=== PATIENT | male | born 1970 | race Caucasian/White ===

== ENCOUNTER → 2017-08-01 | Outpatient (CLI) | payer OTHER, BC ==
[2017-08-01 18:30] LABS: Blood Urea Nitrogen 15 mg/dL (9-20); Non-African American GFR(MDRD) >60 (>60 ml/min/1.73 sqM)
--- NOTE | 2017-08-01 19:27 | CT ---
EXAMINATION TYPE: CT angio chest DATE OF EXAM: 08/01/2017 7:17 PM COMPARISON: NONE HISTORY: Abnormal Echo CT DLP: 1058.4 mGycm Automated exposure control for dose reduction was used. CONTRAST: CTA scan of the thorax is performed with IV Contrast, patient injected with 100 mL of Omnipaque 350, pulmonary embolism protocol. There are 3-D post processed images.. FINDINGS: Heart appears enlarged. There is no pericardial effusion. There is no pleural effusion. The lungs are clear of infiltrate. There is no mediastinal adenopathy. There are no hilar masses. There is aneurys m of ascending aorta that measures 5.2 cm. There is no sign of dissection. I see no filling defects in the pulmonary arteries. The bony structures are intact. IMPRESSION: CARDIOMEGALY. 5.2 CM ANEURYSM OF ASCENDING AORTA. NO EVIDENCE OF PULMONARY EMBOLISM.
== END ==
LOC: RADCTMAIN 17:58
PROVIDERS: ATTEND Internal Medicine Interventional Cardiology
DX: Q23.1 Congenital insufficiency of aortic valve (principal); I51.7 Cardiomegaly; I71.2 Thoracic aortic aneurysm, without rupture
CPT/HCPCS: 82565; 84520; 71275; 36415; Q9967

== ENCOUNTER 2017-08-03 06:02 | Day surgery (SDC) | payer OTHER, BC ==
[2017-07-28 15:55] VITALS: BMI 34.0
[~2017-08-03 06:02] MED LIST: ALPRAZolam 0.25 MG TAB PO PRN; ALPRAZolam 0.5 MG TAB PO PRN; ASPIRIN 325 MG TAB PO STA; ATORVASTATIN 80 MG TAB PO STA; NITROGLYCERIN SL TABS 0.4 MG TAB SUBLINGUAL PRN; SODIUM CHLORIDE 0.9% 1,000 ML in EMPTY BAG 1 BAG IV ONE
[2017-08-03 06:24] VITALS: TEMP 98.5
[2017-08-03 06:39] LABS: Basophils % (A) 1 %; CH 30.8; CHCM 35.3; Eosinophils # (A) 0.2 k/uL (0-0.7); Eosinophils % (A) 4 %; HCT 42.4 % (39.0-53.0); HDW 2.88; HGB 14.5 gm/dL (13.0-17.5); Luc # (Auto) 0.15; Luc % (Auto) 3; Lymphocytes # (A) 1.6 k/uL (1.0-4.8); Lymphocytes % (A) 27 %; MCH 30.1 pg (25.0-35.0); MCHC 34.2 g/dL (31.0-37.0); MCV 87.9 fL (80.0-100.0); Mean Platelet Volume 9.4; Monocytes # (A) 0.4 k/uL (0-1.0); Monocytes % (A) 7 %; Neutrophils # (A) 3.5 k/uL (1.3-7.7); Neutrophils % (A) 59 %; RBC 4.83 m/uL (4.30-5.90); RDW 14.4 % (11.5-15.5); WBC 5.9 k/uL (3.8-10.6); WBC (Perox) 5.44
[2017-08-03 06:44] LABS: Anion Gap 12 mmol/L; Blood Urea Nitrogen 16 mg/dL (9-20); Calcium 9.6 mg/dL (8.4-10.2); Carbon Dioxide 21 mmol/L (22-30); Chloride 107 mmol/L (98-107); Glucose 98 mg/dL (74-99); Non-African American GFR(MDRD) >60 (>60 ml/min/1.73 sqM); Sodium 140 mmol/L (137-145)
[2017-08-03] MEDS ORDERED: fentaNYL (PF) 50 MCG/ML 2 ML AMP ONE (06:51)
[2017-08-03] MEDS ORDERED: MIDAZOLAM 2 MG/2 ML VIAL ONE (06:51)
[2017-08-03] MEDS: BENZOCAINE SPRAY 1 SPRAY CAN MUCOUS MEM ONE ×3 (06:56→07:15)
[2017-08-03] MEDS ORDERED: fentaNYL (PF) 50 MCG/ML 2 ML AMP IVP ONE (07:15)
[2017-08-03] MEDS ORDERED: MIDAZOLAM 2 MG/2 ML VIAL IVP ONE ×2 (07:15→07:16)
[2017-08-03] MEDS ORDERED: SODIUM CHLORIDE 0.9% 1,000 ML IV ONE (07:20)
[2017-08-03] MEDS ORDERED: LIDOCAINE 2% INJ 20 MG/ML (20 ML MDV) ONE (07:25)
[2017-08-03] MEDS ORDERED: VERAPAMIL 2.5 MG/ML 2 ML AMP ONE (07:26)
[2017-08-03] MEDS ORDERED: VERAPAMIL SYRINGE (5 MG/10 ML) INTRAARTER ONE (08:03)
[2017-08-03] MEDS ORDERED: HEPARIN SODIUM 1,000 UN/ML (10ML VL) ONE (08:04)
[2017-08-03] MEDS ORDERED: HEPARIN SODIUM 1,000 UN/ML (10ML VL) IV ONE (08:04)
[2017-08-03] MEDS ORDERED: IOHEXOL 350 MG/ML 125ML BOTTLE INJ ONE (08:28)
--- NOTE | 2017-08-03 08:34 | EST ---
EXERCISE STRESS INDICATION: Evaluation of the aortic valve. PROCEDURE: After explaining the procedure to the patient, it's risks and complications, his blood pressure, heart rate, O2 saturation was monitored. He received 3 mg intravenous Versed, 50 mcg intravenous fentanyl. After achieving moderate conscious sedated state, the probe was introduced into the esophagus without difficulty. Images were obtained. Following that, the probe was removed. There was no immediate complication. FINDINGS: Left atrial size is normal. Left ventricular size appears to be dilated with mild global hypokinesis. The estimated ejection fraction is 45% to 50%. The aortic valve and bicuspid valve with preserved opening. The mitral and tricuspid valve are normal. Descending thoracic aorta appears normal. No pericardial effusion was noted. Contrast bubble study revealed no shunting across the interatrial septum. The ascending aorta is dilated measuring up to 5.1 cm. Color Doppler study was obtained and revealed a severe eccentric aortic regurgitation with mild mitral and tricuspid regurgitation. There was no shunting by color Doppler study. CONCLUSION: 1. Mild global hypokinesis of the left ventricle. 2. Bicuspid aortic valve with preserved opening and severe eccentric aortic regurgitation. 3. Mild mitral and tricuspid regurgitation. 4. No shunting across the interatrial septum. 5. Dilated ascending aorta. MMODL / IJN: [id number] /
[2017-08-03 08:37] LABS: Anion Gap 11 mmol/L; Blood Urea Nitrogen 15 mg/dL (9-20); Calcium 9.1 mg/dL (8.4-10.2); Carbon Dioxide 23 mmol/L (22-30); Chloride 107 mmol/L (98-107); Glucose 95 mg/dL (74-99); Non-African American GFR(MDRD) >60 (>60 ml/min/1.73 sqM); Potassium 4.4 mmol/L (3.5-5.1); Sodium 141 mmol/L (137-145)
[2017-08-03] MEDS ORDERED: RX INFO: IV CONTRAST WAS GIVEN 1 EACH MISC MISCELLANE PRN (08:40)
[2017-08-03] MEDS ORDERED: SODIUM CHLORIDE 0.9% 1,000 ML IV SCH (08:45)
[2017-08-03] MEDS ORDERED: METOPROLOL SUCCINATE (ER) 25 MG TAB.ER.24H PO SCH (09:00)
[2017-08-03 09:04] VITALS: RESP 16
--- NOTE | 2017-08-03 09:49 | CC ---
CARDIAC CATHETERIZATION REPORT Mr. James is a 47-year-old male who recently was found to have evidence of cardiomyopathy as well as bicuspid aortic valve and severe aortic regurgitation. In view of that, recommendation was made regarding cardiac catheterization. The procedure as well as the risks and complications were discussed with the patient who is in full understanding and agreement. PROCEDURE: The patient was brought to nitriles lab technician in a fasting, semi-sedated state after receiving fentanyl and Benadryl and after achieving moderate conscious sedated state. Using Xylocaine anesthesia in the Seldinger technique, 6-Macedonian sheath was introduced in the right radial artery. Selective right and left coronary angiography performed using 5- Macedonian 4 bend left Edgard catheter and a 6-Macedonian 5 bend right Edgard catheter. Images of the coronary artery including hemiaxial views were obtained. Following that, 5-Macedonian tight pigtail catheter introduced in the left ventricle and a 30-degree QUEEN view of the left ventricle was obtained. Following that, an CAMBODIAN view of the ascending aorta was performed. Following that, cath and sheaths were removed. Hemostasis was obtained with deployment of a TR band. There was no immediate complication. Patient was returned to his room in stable condition. Of note, the patient received 5000 units of intravenous heparin as well as intra-arterial verapamil. FINDINGS: LEFT MAIN: This is a short size vessel bifurcating left circumflex and left anterior descending artery. The left main coronary artery is without any significant obstructive coronary artery disease. LEFT ANTERIOR DESCENDING ARTERY: This is a large-sized vessel reaching toward the apex with a wraparound apex segment giving rise to 2 moderately sized diagonal branch. Left anterior descending artery as well as branches have no evidence of obstructive coronary artery disease. LEFT CIRCUMFLEX: This is a nondominant vessel, large in caliber, giving rise to a large obtuse marginal branch. The left circumflex as well as branches have no evidence of obstructive coronary artery disease. RIGHT CORONARY ARTERY: This is a large dominant vessel bifurcating distally PDA, posterolateral segment and branches. The right coronary artery as well as branches have no evidence of obstructive coronary artery disease. LEFT VENTRICULOGRAM: Left ventriculogram is performed in 30-degree QUEEN view and revealed a dilated left ventricle with mild global hypokinesis with ejection fraction of 45%. There was arrhythmia induced mitral regurgitation. AORTOGRAM: Aortogram was performed in the CAMBODIAN view and revealed a dilated ascending aorta with evidence of 3 to 4+ AI. CONCLUSION: 1. Normal coronary arteries. 2. Dilated left ventricle with mild to moderate global hypokinesis. 3. Dilated ascending aorta with 3 to 4+ aortic regurgitation. RECOMMENDATION: In view of finding, I have recommended proceeding with evaluation for aortic valve replacement and aortic root repair. Those findings and recommendations were discussed with the patient and his family and they are in full understanding and agreement. Duration of the procedure is 33 minutes. MMVAISHNAVIL / IJN: [id number] /
--- NOTE | 2017-08-03 09:55 | LTR ---
August 03, [address] Gamez: I had the opportunity to perform cardiac catheterization on Mr. James at [facility] on the 03 of August and a full copy of the procedure note will be forwarded to you. In brief, he was found to have no evidence of obstructive coronary artery disease with dilated left ventricle with mild to moderately impaired left ventricular systolic function as well as dilatation of the ascending aorta and evidence of 3 to 4+ aortic regurgitation. At this time, I would recommend to proceed with evaluation for aortic valve replacement and ascending aortic repair. I will keep you updated on his progress and thank you again for allowing me the opportunity to participate in his care. Please feel free to call for any questions. Sincerely, Grace LOCKE / DONAN: [phone] /
[2017-08-03 12:58] VITALS: BP 112/62; PULSE 64
== END 2017-08-03 13:10 | disposition home or self-care (01) ==
LOC: CATHCVL 06:02
PROVIDERS: ATTEND Internal Medicine Interventional Cardiology
DX: Q23.1 Congenital insufficiency of aortic valve (principal); I77.810 Thoracic aortic ectasia; Z82.49 Family history of ischemic heart disease and other diseases of the circulatory system; Z79.899 Other long term (current) drug therapy
CPT/HCPCS: 93312; 93320; 93325; 93458; 93567; 99152; 80048; 85025; C1894 ×4; C1887; C1751; C1769 ×2; J2250; J3010; J1644; Q9967

== ENCOUNTER → 2018-05-15 | Outpatient (CLI) | payer OTHER, BC ==
--- NOTE | 2018-05-15 19:37 | CONS ---
CONSULTATION A 48-year-old male patient who is post aortic valve replacement in November 2017 for a bicuspid aortic valve. He has a strong family history for sleep apnea, including his father and a sister. He is coming in for evaluation of sleep apnea. He has snoring. He had no witnessed apneas. Denies having any choking or gasping sensation in the middle of the night. No nocturia. He goes to bed between 10:30 and 11:00 p.m., wakes up at 4:30 am in the morning. He averages around 5-6 hours of sleep. He does not fall asleep while driving. He does not take any naps during the day. Gays score is at 5. PAST MEDICAL HISTORY: Bicuspid aortic valve, post replacement. PAST SURGICAL HISTORY: Includes aortic valve replacement with a bioprosthetic tissue valve, ankle surgery with removal of a chipped bone in 1980, knee arthroscopy in 2007, appendectomy in 2016. MEDICATION: Includes: 1. Coreg and. 2. Aspirin. SOCIAL HISTORY: Nonsmoker. No history of alcoholism. No history of IV drugs. FAMILY HISTORY: Positive for sleep apnea. REVIEW OF SYSTEMS: A 12-point review of systems was done. Positive findings are mentioned above in history of present illness. He does not wake up tired. He does not have any problems the paying attention, does not fall asleep during the day. He is not worried about his sleep quality in general. He has no problems with memory or concentration. No irritability. No depression no anxiety. No claustrophobia. No sexual dysfunction. No restlessness in lower extremities. No sweating. No grinding of the teeth. No dry mouth. No panic attacks. No palpitations. No heartburn. His BP is 132/65, pulse 80, respirations 16, temperature 98.3, saturation 98% on room air. Weight is 220. Height is 5 feet 8 inches. Neck size 17-1/2 inches and BMI is 32.9. GENERAL APPEARANCE: Calm, comfortable. HEAD: Atraumatic, normocephalic. Neck is short, supple. Mallampati class IV. No goiter or neck masses. LUNGS: Clear to auscultation. HEART: Sounds are regular rate and rhythm. Normal S1, S2. Sternum is stable, clean and intact. ABDOMEN: Soft, nontender. No organomegaly. EXTREMITIES: No edema, cyanosis or clubbing. Neurologically, the patient is awake and alert x3 and there is no focal neurological deficit. Psychiatrically, negative for anxiety or depression. IMPRESSION: 1. Obstructive sleep apnea clinically suspected. My overall suspicion is low. The patient snores and he has a positive family history, yet he does not have any significant sleep fragmentation or any excessive daytime hypersomnia or sleepiness. Gays score is at 5. 2. Bicuspid aortic valve, status post replacement with a bioprosthetic tissue valve. PLAN: 1. Will proceed with a PSG to assess the presence of sleep apnea. 2. Encourage weight loss. 3. Extend sleep hours to an average of 7 hours of sleep per night. 4. Will continue to follow. MMVAISHNAVIL / IJN: [id number] /
== END | disposition home or self-care (01) ==
LOC: SLEEP 16:10
PROVIDERS: ATTEND Internal Medicine Critical Care Medicine
DX: R06.83 Snoring (principal); Q23.1 Congenital insufficiency of aortic valve; Z95.3 Presence of xenogenic heart valve; Z79.82 Long term (current) use of aspirin; Z79.899 Other long term (current) drug therapy
CPT/HCPCS: 99211

== ENCOUNTER → 2018-10-16 | Outpatient (CLI) | payer OTHER, BC ==
--- NOTE | 2018-10-16 09:57 | US ---
EXAMINATION TYPE: US kidneys/renal and bladder DATE OF EXAM: 10/16/2018 COMPARISON: NONE CLINICAL HISTORY: R94.4 ABN KIDNEY FUNCTIONS. no complaints from patient. Abnormal bloodwork. EXAM MEASUREMENTS: Right Kidney: 12.4 x 6.8 x 5.5 cm Left Kidney: 12.1 x 6.4 x 6.2 cm Post Void Residual Volume: 12 ml mL Right Kidney: No hydronephrosis or masses seen Left Kidney: cyst lower pole = 2.3 x 2.0 x 1.9 cm, non-shadowing, echogenic area mid pole = 1.1 cm Bladder: wnl Bilateral Jets seen: Yes Normal Post Void Residual: Yes There is no evidence for hydronephrosis at this point in time. No nephrolithiasis is seen. No wagner s are identified. The urinary bladder is poorly distended. Bilateral ureteral jets are seen. Adjacent liver is heterogeneously hyperechoic suggesting body infiltration. Correlate clinically and with liver lab values. Technologist chisholm 2.3 x 1.9 cm round well-defined hypoechoic to anechoic lesi on exophytically lower pole left kidney. No definitive increased through transmission noted. IMPRESSION: No hydronephrosis is evident bilaterally. There is nonspecific 2.3 cm exophytic lesion lower pole lef t kidney does not meet definitive ultrasound characteristics of simple cyst. Follow-up multiphasic co ntrast-enhanced renal protocol CT or MRI is advised to further evaluate and characterize.
== END | disposition home or self-care (01) ==
LOC: RADUSWWP 06:56
PROVIDERS: ATTEND Internal Medicine
DX: N28.9 Disorder of kidney and ureter, unspecified (principal)
CPT/HCPCS: 76770

== ENCOUNTER → 2018-10-16 | Outpatient (CLI) | payer OTHER, BC ==
--- NOTE | 2018-10-16 16:19 | PN ---
PROGRESS NOTE 48-year-old male patient, post aortic valve replacement surgery for bicuspid aortic valve. The patient has severe REJI with an AHI of 82. The patient was offered CPAP therapy at a pressure of 10 cm of water. Today he is coming in for a compliancy check. He is benefitting from the treatment. He is very compliant. His sleep quality is improved. He is waking up refreshed and alert during the day. He has no complaints or issues from his CPAP unit. He is liking the overall treatment and he is benefitting from it. His weight is up by around 9 pounds. He used to weigh around 220, currently he is up to 229. His CPAP is at the pressure of 10. He has been using the CPAP every night and his CPAP use for more than 4 hours is 16 out of 30 over the past 30 days averaging around 4.3 hours per night. AHI while on treatment is down to 3.2. Leak is 22 L/minute. He is using the AirFit N20 nose mask. I offered him also the [employer] nose mask which he likes and he is trying and is willing to use. REVIEW OF SYSTEMS: No chest pain. No palpitations. No shortness of breath. No leg swelling. No orthopnea. No hypersomnia or sleepiness during the day. He does not fall asleep during day-to-day activities. No nocturnal heartburn. No body aches or pains. No palpitations. No altered mentation. PHYSICAL EXAMINATION: BP is 112/80, pulse 80, respirations 16, temperature 98.4, weight is 229.6, Itmann score is 6, saturation 96% on room air. GENERAL APPEARANCE: Calm comfortable. Head is atraumatic, normocephalic. Neck is short, supple. Mallampati class IV. There is no goiter or neck masses. Lungs: Diminished, otherwise clear. HEART: Sounds are regular. Positive S1, S2. No S3, S4. No murmurs. ABDOMEN: Soft, nontender. No organomegaly. EXTREMITIES: No edema. No cyanosis or clubbing. NEUROLOGIC: Alert and oriented x3. There is no focal neurological deficits. Psychiatrically negative for anxiety or depression. IMPRESSION: 1. Severe obstructive sleep apnea, AHI of 82, currently undergoing successful CPAP treatment at the pressure of 10 cm of water. 2. Severe nocturnal oxygen desaturation recovered with CPAP therapy. 3. Obesity, with a body weight of 229. 4. History of bicuspid aortic valve post replacement. PLAN: 1. The patient continues to benefit. 2. Continue CPAP therapy at a pressure of 10. 3. DreamWear nose mask will be introduced instead of the AirFit and 20. 4. Encourage weight loss. 5. Implement good sleep hygiene measures. 6. See me back as needed. MMODL / IJN: [id number] /
== END | disposition home or self-care (01) ==
LOC: SLEEP 14:03
PROVIDERS: ATTEND Internal Medicine Critical Care Medicine
DX: G47.33 Obstructive sleep apnea (adult) (pediatric) (principal); E66.9 Obesity, unspecified; Z99.89 Dependence on other enabling machines and devices

== ENCOUNTER → 2018-11-23 | Outpatient (CLI) | payer OTHER, BC ==
--- NOTE | 2018-11-23 12:57 | CT ---
EXAMINATION TYPE: CT urogram wo/w con DATE OF EXAM: 11/23/2018 COMPARISON: Ultrasound kidneys 10/16/2018 HISTORY: Abnormal US and renal function bloodwork. CT DLP: 2531.2 mGycm CONTRAST: Performed and without and with IV Contrast, patient injected with 100 mL of Isovue 300. CT Urography was performed with unenhanced followed by enhanced images of the kidneys, ureters and ur inary bladder. Delayed images were obtained. 3d reconstruction was perfromed at a separate work sta tion. FINDINGS: KIDNEYS/BLADDER: 2 cm exophytic lesion lower pole left kidney with Hounsfield unit ranging between 25 and 30. I cannot classify this lesion as a simple cyst. MRI is advised. Additional exophytic lesion mid pole right kidney measures 1.1 cm with Hounsfield unit measurement of approximately 25. This coul d also be reviewed at MRI. There is evidence of left-sided nonobstructing nephrolithiasis measuring u p to 3 mm. No hydronephrosis appreciated. Urinary bladder is unremarkable. LUNG BASES-: No visible nodule. No infiltrate. LIVER/GB: No calcified gallstones. No space occupying hepatic lesion. Biliary tree is of normal ca liber. PANCREAS: No inflammation. No distinct mass. SPLEEN: No splenic enlargement. No lesion seen. ADRENALS: No nodule. No thickening. BOWEL: Appendectomy clips are in place. Normal bowel caliber. No inflammation. GENITAL ORGANS: No gross abnormality. LYMPH NODES: No greater than 1cm abdominal or pelvic lymph nodes are appreciated. AORTA: No significant abnormality. OSSEOUS STRUCTURES: No significant abnormality is seen. OTHER: No significant additional abnormality is seen. IMPRESSION: 1. Exophytic left renal lesion which I cannot confidently classified as a simple cyst. While this cou ld reflect a cyst with proteinaceous or hemorrhagic content further evaluation with MRI is advised. S ee above.
== END | disposition home or self-care (01) ==
LOC: RADCTMAIN 10:45
PROVIDERS: ATTEND Internal Medicine
DX: N28.89 Other specified disorders of kidney and ureter (principal); R93.41 Abnormal radiologic findings on diagnostic imaging of renal pelvis, ureter, or bladder
CPT/HCPCS: 74178; 74400; Q9967

== ENCOUNTER → 2019-05-07 | Outpatient (CLI) | payer OTHER, BC ==
[2019-05-07 23:58] LABS: African American GFR (CKD) 73.7 (60.0-200.0); Anion Gap 8.2 mmol/L (4.00-12.00); Carbon Dioxide 24.8 mmol/L (21.6-31.8); Potassium 4.1 mmol/L (3.5-5.5)
== END | disposition home or self-care (01) ==
LOC: LABWHC1 17:06
PROVIDERS: ATTEND Internal Medicine Interventional Cardiology
DX: I42.8 Other cardiomyopathies (principal)
CPT/HCPCS: 36415; 80051; 82565; 84520

== ENCOUNTER → 2019-06-06 | Outpatient (CLI) | payer OTHER, BC ==
[2019-06-06 19:00] LABS: African American GFR (CKD) 89.6 (60.0-200.0); Anion Gap 10.9 mmol/L (4.00-12.00); BUN/Creat Ratio 15.45 Ratio (12.00-20.00); Calcium 9.4 mg/dL (8.7-10.3); Carbon Dioxide 24.1 mmol/L (21.6-31.8); Non-African American GFR(CKD) 77.3 (60.0-200.0); Potassium 4.1 mmol/L (3.5-5.5)
== END | disposition home or self-care (01) ==
LOC: LABWHC1 12:40
PROVIDERS: ATTEND Nurse Practitioner Adult Health
DX: I42.8 Other cardiomyopathies (principal)
CPT/HCPCS: 36415; 80048

== ENCOUNTER → 2020-05-22 | Outpatient (CLI) | payer OTHER, BC ==
--- NOTE | 2020-05-22 07:49 | US ---
EXAMINATION TYPE: US kidneys/renal and bladder DATE OF EXAM: 05/22/2020 COMPARISON: NONE CLINICAL HISTORY: N28.1 RENAL CYST. Follow up left renal cyst EXAM MEASUREMENTS: Right Kidney: 12.8 x 5.3 x 4.8 cm Left Kidney: 12.3 x 6.0 x 5.1 cm Right Kidney: Simple cystic area lateral = 1.2 x 1.2 x 1.3cm Left Kidney: Simple exophytic cystic area = 2.6 x 2.1 x 2.1cm . Previous measurement 2.3 x 2.0 x 1.9 Bladder: appears wnl Bilateral Jets seen: yes There is no evidence for hydronephrosis at this point in time. No nephrolithiasis is seen. No wagner s are identified. The urinary bladder is anechoic. Bilateral ureteral jets are seen. IMPRESSION: Bilateral simple appearing renal cysts.
== END | disposition home or self-care (01) ==
LOC: RADUSWWP 07:13
PROVIDERS: ATTEND Urology
DX: N28.1 Cyst of kidney, acquired (principal)
CPT/HCPCS: 76770

== ENCOUNTER → 2020-09-08 | Outpatient (CLI) | payer OTHER, BC ==
[2020-09-09 02:54] LABS: Albumin 4.4 g/dL (3.80-4.90); Albumin/Globulin Ratio 1.69 (1.60-3.17); Anion Gap 7.1 mmol/L (4.00-12.00); BUN/Creat Ratio 12.73 Ratio (12.00-20.00); Calcium 9.7 mg/dL (8.7-10.3); Carbon Dioxide 27.9 mmol/L (21.6-31.8); Globulin 2.6 g/dL (1.6-3.3); Non-African American GFR(CKD) 76.8 (60.0-200.0); Potassium 4.1 mmol/L (3.5-5.5); Total Bilirubin 0.5 mg/dL (0.2-1.2)
== END | disposition home or self-care (01) ==
LOC: LABWHC1 16:29
PROVIDERS: ATTEND Internal Medicine Interventional Cardiology
DX: I10 Essential (primary) hypertension (principal)
CPT/HCPCS: 36415; 80053

== ENCOUNTER 2021-08-27 07:12 | Day surgery (SDC) | payer BC ==
[2021-08-26 08:37] VITALS: BMI 31.7
[2021-08-27 07:31] VITALS: TEMP 98.3
[2021-08-27] MEDS: LACTATED RINGERS 1,000 ML IV SCH ×2 (07:31→07:58)
[2021-08-27] MEDS ORDERED: LIDOCAINE 1% (10MG/ML) FOR IV START INTRADERMA ONE (07:32)
[2021-08-27] MEDS ORDERED: PROPOFOL 10 MG/ML 20 ML VIAL IV ONE (07:59)
--- NOTE | 2021-08-27 08:17 | P.PCN ---
Date of Procedure: 08/27/21 Preoperative Diagnosis: Screening Postoperative Diagnosis: Sigmoid colon polyp Procedure(s) Performed: Colonoscopy with hot snare polypectomy Anesthesia: MAC Surgeon: Tank Argueta Pathology: other (Sigmoid colon polyp) Condition: stable Disposition: same day Indications for Procedure: 51-year-old male presents today for screening colonoscopy. He has never had a colonoscopy. Benefits and alternatives were provided to the patient. He did provide consent Operative Findings: Sigmoid colon polyp Description of Procedure: The patient was brought to the endoscopy suite and placed in left lateral cutis position and adequate sedation was achieved using conscious sedation. A digital rectal exam was performed and internal hemorrhoids were palpated. An endoscope was then placed in the rectum and advanced to the cecum as identified by landmarks including the appendiceal orifice and the ileocecal valve. The prep was good. The colonoscope was then slowly withdrawn, examining for any mucosal abnormalities. The cecum, ascending, transverse, descending and sigmoid colon were visualized adequately. There were no large neoplastic lesions of the colon. A pedunculated polyp was noted in the sigmoid colon. This was removed with hot snare polypectomy. Hemostasis was maintained. There was no evidence of diverticulosis. Retroflexion was performed in the rectum and internal hemorrhoids were visible. Excess air was removed, the colonoscope withdrawn and the procedure terminated. The patient was then transferred to the recovery unit in stable condition. Repeat colonoscopy should be performed in 5 years.
[2021-08-27 08:39] VITALS: BP 119/67; PULSE 58; RESP 18
== END 2021-08-27 08:51 | disposition home or self-care (01) ==
LOC: ORWHC2ENDO 07:12
PROVIDERS: ATTEND Surgery
DX: Z12.11 Encounter for screening for malignant neoplasm of colon (principal); D12.5 Benign neoplasm of sigmoid colon; Z79.899 Other long term (current) drug therapy; E78.5 Hyperlipidemia, unspecified; G47.33 Obstructive sleep apnea (adult) (pediatric); Z79.82 Long term (current) use of aspirin
CPT/HCPCS: 88305; 45385; J2704

== ENCOUNTER → 2021-10-14 | Outpatient (CLI) | payer BC ==
[2021-10-14 10:05] LABS: ALT 37 U/L (4-49); African American GFR (CKD) >90 (>60 ml/min/1.73 sqM); Albumin 4.5 g/dL (3.5-5.0); Anion Gap 7 mmol/L; Blood Urea Nitrogen 14 mg/dL (9-20); Calcium 9.6 mg/dL (8.4-10.2); Carbon Dioxide 27 mmol/L (22-30); Chloride 103 mmol/L (98-107); Glucose 95 mg/dL (74-99); Non-African American GFR(CKD) 82 (>60 ml/min/1.73 sqM); Sodium 137 mmol/L (137-145)
[2021-10-14 10:07] LABS: AST 35 U/L (17-59); Alkaline Phosphatase 66 U/L (38-126); Potassium 5.2 mmol/L (3.5-5.1)
--- NOTE | 2021-10-14 14:34 | CT ---
EXAMINATION TYPE: CT angio chest DATE OF EXAM: 10/14/2021 COMPARISON: CT angiogram of the chest 08/01/2017 HISTORY: follow up thoracic aortic aneurysm CT DLP: 1202 mGycm Automated exposure control for dose reduction was used. CONTRAST: CTA scan of the thorax is performed with IV Contrast, patient injected with 100 mL of Isovue 370, pul monary embolism protocol. MIP images are created and reviewed. 3D reconstructed images are created on an independent workstation and reviewed. FINDINGS: There is some motion artifact on the exam, ascending aorta measures approximately 5 cm whic h has decreased in size slightly in interval, there is suspected interval aortic valve replacement. P atient is post median sternotomy. LUNGS: The lungs are grossly clear, there is no concerning parenchymal mass or nodule identified. T here is no pleural effusion or pneumothorax seen. The tracheobronchial tree is patent. AORTA: Root of the aorta is measuring approximate 5.1 cm, proximal ascending aorta approximately 4.8 cm however there is some motion present. Proximal descending aorta is approximately 2.9 cm, the aort a at the level of the hiatus measures approximately 2.5 to 2.6 cm. MEDIASTINUM: There is satisfactory enhancement of the pulmonary artery and its branches, there is no CT evidence for pulmonary embolism. There are no greater than 1 cm hilar or mediastinal lymph nodes. No pericardial effusion is seen. OTHER: No additional significant abnormality is seen. IMPRESSION: AORTIC ANEURYSM SLIGHTLY DECREASED IN SIZE COMPARED TO PRIOR EXAM
[2021-10-14 15:58] LABS: Chol/HDL Ratio 4.42 Ratio; LDL Cholesterol,Calculated 168.8 mg/dL (0.0-131.0)
== END | disposition home or self-care (01) ==
LOC: RADCTMAIN 08:55
PROVIDERS: ATTEND Internal Medicine Interventional Cardiology
DX: I71.2 Thoracic aortic aneurysm, without rupture (principal); I42.8 Other cardiomyopathies; E78.2 Mixed hyperlipidemia
CPT/HCPCS: 80061; 80053; 71275; 36415; Q9967

== ENCOUNTER → 2022-05-02 | Outpatient (CLI) | payer BC ==
--- NOTE | 2022-05-02 23:19 | CT ---
EXAMINATION TYPE: CT angio chest DATE OF EXAM: 05/02/2022 COMPARISON: CT dated 10/14/2021 HISTORY: Thoracic aortic aneurysm CT DLP: 999.4 mGy.cm. Automated Exposure Control for Dose Reduction was Utilized. TECHNIQUE AND CONTRAST: CTA scan of the thorax is performed with IV Contrast, patient injected with 100ml mL of Isovue 370, a neurysm protocol. MIP and 3-D Images are created on an independent workstation and reviewed. FINDINGS: Suspected previous aortic valve surgery. The aortic root measures up to 5.1 cm, stable. The most infe rior aspect of the ascending thoracic aorta measures up to 5 cm, stable. Unremarkable remainder of the thoracic and upper abdominal aorta. No major or central pulmonary embol ism. Slightly increased cardiac size. No pathologically enlarged lymph nodes in the chest. Grossly unremarkable lungs. Patent trachea and main bronchi. No pleural or pericardial effusion. The gallbladder is not distended. Suspected right renal cyst, not completely included in the scan. Sterno onur wire sutures. IMPRESSION: Stable postoperative changes and ascending aortic aneurysm measuring up to 5 cm as described above.
== END | disposition home or self-care (01) ==
LOC: RADCTMAIN 14:19
PROVIDERS: ATTEND Internal Medicine Interventional Cardiology
DX: I71.2 Thoracic aortic aneurysm, without rupture (principal)
CPT/HCPCS: 71275; Q9967

== ENCOUNTER → 2023-11-15 | Outpatient (CLI) | payer BC | END | disposition home or self-care (01) | LOC: RADCTMAIN 10:55 | PROVIDERS: ATTEND Internal Medicine Interventional Cardiology | DX: Z53.9 Procedure and treatment not carried out, unspecified reason (principal) | CPT/HCPCS: 71275; Q9967 ==

== ENCOUNTER → 2024-11-11 | Outpatient (CLI) | payer BC ==
--- NOTE | 2024-11-11 16:20 | CT ---
EXAMINATION TYPE: CT angio chest CT DLP: 1134.8 mGycm, Automated exposure control for dose reduction was used. DATE OF EXAM: 11/11/2024 4:10 PM COMPARISON: Multiple CTA Chest with most recent 11/15/2023 CLINICAL INDICATION:Male, 54 years old with history of I71.20 ANEURYSM; f/u aneurysm TECHNIQUE/CONTRAST: CTA scan of the thorax is performed without and with IV Contrast, patient injected with 100 mL of Iso abi 370. 3D reconstructed images are created on an independent workstation and reviewed.. FINDINGS: Lungs/Pleura: No evidence of focal consolidation, pleural effusion or pneumothorax. No suspicious pul monary nodule or mass. Airway: Large airways are patent. Heart: The heart is mildly enlarged for size. No pericardial effusion. Mild coronary arterial calcifi cations. Vasculature: Conventional three-vessel aortic arch. No evidence for intramural hematoma or dissection . Prosthetic aortic valve. Marginal increase in size of ascending aortic fusiform aneurysm beginning at the aortic valve measuring up to 4.8 cm, previously 4.6 cm. The distal ascending thoracic aorta me asures up to 2.8. No filling defect within the pulmonary arteries to suggest embolism. Normal calibe r pulmonary trunk. The visualized SMA celiac axis are widely patent. The visualized bilateral renal a rteries are widely patent with accessory bilateral renal arteries. Mediastinum: No evidence of adenopathy. Musculoskeletal: No acute osseous abnormalities. Median sternotomy wires. Soft Tissues: Unremarkable. Lower neck: Stable tiny hypodense subcentimeter nodule within the left thyroid lobe.. Upper Abdomen: Nonobstructive bilateral 3 mm renal calculi. Increasing size of 2.1 cm exophytic right renal lesion, previously 1.7 cm. Not consistent with a simple cyst. IMPRESSION: 1. Marginal increase in size of ascending thoracic aortic aneurysm measuring up to 4.8 cm beginning a t the prosthetic aortic valve, previously 4.6 cm. No evidence of intramural hematoma or dissection. 2. Increasing size of right renal exophytic 2.1 cm lesion without attenuation consistent with a simpl e cyst. May represent a proteinaceous/hemorrhagic cyst versus other etiologies. Further evaluation wi renal ultrasound is recommended. 3. Nonobstructive bilateral renal calculi. [facility], , 11/11/2024 4:17 PM
== END | disposition home or self-care (01) ==
LOC: RADCTMAIN 15:13
PROVIDERS: ATTEND Internal Medicine Interventional Cardiology
DX: I71.21 Aneurysm of the ascending aorta, without rupture (principal); N20.0 Calculus of kidney; N28.9 Disorder of kidney and ureter, unspecified; Z95.2 Presence of prosthetic heart valve
CPT/HCPCS: 71275; Q9967

== ENCOUNTER → 2024-12-10 | Outpatient (CLI) | payer BC ==
[2024-12-10 11:15] LABS: ALT 38 U/L (10-49); AST 22 U/L (14-35); Albumin 4.1 g/dL (3.8-4.9); Albumin/Globulin Ratio 1.58 Ratio (1.60-3.17); Alkaline Phosphatase 87 U/L (41-126); BUN/Creat Ratio 12.36 Ratio (12.00-20.00); Blood Urea Nitrogen 13.6 mg/dL (9.0-27.0); Calcium 9.2 mg/dL (8.7-10.3); Chloride 106 mmol/L (96-109); Chol/HDL Ratio 2.95 Ratio; Globulin 2.6 g/dL (1.6-3.3); Glucose 115 mg/dL (70-110); LDL Cholesterol,Calculated 78.5 mg/dL (0.0-131.0); Potassium 4.4 mmol/L (3.5-5.5); Sodium 141 mmol/L (135-145); Total Bilirubin 0.4 mg/dL (0.3-1.2); Total Protein 6.7 g/dL (6.2-8.2)
== END ==
LOC: LABWHC1 07:10
PROVIDERS: ATTEND Internal Medicine Interventional Cardiology
DX: E78.2 Mixed hyperlipidemia (principal)
CPT/HCPCS: 36415; 80053; 80061